=== PATIENT | male | born 1980 | race Caucasian/White ===

== ENCOUNTER 2017-02-17 19:28 | Emergency (ER) | payer SELFPAY ==
[~2017-02-17] VITALS: Ht 177.8 cm; Wt 78.9 kg
[2017-02-17 19:28] VITALS: BP 138/40
[2017-02-17] MEDS ORDERED: UNABLE MC (19:36)
[2017-02-17] MEDS ORDERED: IV NORMAL SALINE 1000ML BAG 1,000 ML IV ONE (20:00)
[2017-02-17] MEDS ORDERED: NALOXONE 0.4 MG/ML VIAL. IV ONE (20:00)
--- NOTE | 2017-02-17 20:04 | PHYS DOC ---
Past Medical History Past Medical History: Other Additional Past Medical Histor: "enlarged heart" etoh, heroin abuse Past Surgical History: Cholecystectomy Alcohol Use: Heavy Drug Use: Heroin Adult General Chief Complaint Chief Complaint: ALTERED MENTAL STATUS HPI HPI 36-year-old male with a history of multidrug abuse including chronic IV heroin abuse now brought in by EMS after being found after found unresponsive in a [facility] bathroom. Patient states he has been using heroin. He denies intentional overdose. Patient states she's also been drinking some alcohol today. No suicidal ideation. Patient does report that he has sleep apnea. He denies recent trauma or illness Review of Systems Review of Systems Review of systems Limited by patient's acute intoxication secondary to opioid abuse Constitutional: Denies fever or chills [] Eyes: Denies change in visual acuity, redness, or eye pain [] HENT: Denies nasal congestion or sore throat [] Respiratory: Denies cough or shortness of breath [] Cardiovascular: No additional information not addressed in HPI [] GI: Denies abdominal pain, nausea, vomiting, bloody stools or diarrhea [] : Denies dysuria or hematuria [] Musculoskeletal: Denies back pain or joint pain [] Integument: Denies rash or skin lesions [] Neurologic: Denies headache, focal weakness or sensory changes [] Endocrine: Denies polyuria or polydipsia [] Current Medications Current Medications Current Medications Medications (Trade) Dose Ordered Sig/Son Start Time Stop Time Status Last Admin Dose Admin Naloxone HCl (Narcan) 0.4 mg 1X ONCE 02/17/17 20:00 02/17/17 20:01 DC 02/17/17 19:53 0.4 MG Sodium Chloride 1,000 ml @ 999 mls/hr 1X ONCE 02/17/17 20:00 02/17/17 21:00 02/17/17 19:56 999 MLS/HR Allergies Allergies Allergies Coded Allergies Type Severity Reaction Last Updated Verified No Known Drug Allergies 02/17/17 No Physical Exam Physical Exam Constitutional: Obese male somnolent and falling asleep during conversation. He does make an effort to answer questions however he drifts off for the end of each sentence., well nourished, no acute distress HENT: Normocephalic, atraumatic, bilateral external ears normal, mucous membranes dry, no oral exudates, nose normal. [] Eyes: PERRLA, EOMI, conjunctiva normal, no discharge. Right exotropia baseline per patient Neck: Normal range of motion, no tenderness, supple, no stridor. [] Cardiovascular:Heart rate regular rhythm, no murmur [] Lungs & Thorax: Bilateral breath sounds clear to auscultation [] Abdomen: Bowel sounds normal, soft, no tenderness, no masses, no pulsatile masses. [] Skin: Warm, dry, no erythema, no rash. [] Multiple scabs right upper extremity consistent with lesions from IV drug abuse. Back: No tenderness, no CVA tenderness. [] Extremities: No tenderness, no cyanosis, no clubbing, ROM intact, no edema. [] Neurologic: Arousable and oriented X 2, to self and to situation, patient not oriented to time and he knows he is in a hospital but is not sure which one., normal motor function, normal sensory function, no focal deficits noted. [] Psychologic: Flat affect and depressed mood judgement not normal, Current Patient Data Vital Signs Vital Signs Date Time Temp Pulse Resp B/P (MAP) Pulse Ox O2 Delivery O2 Flow Rate FiO2 02/17/17 19:28 98.7 103 14 138/40 (72) 88 Room Air 98.7 Lab Values Laboratory Tests Test 02/17/17 19:53 02/17/17 20:00 02/17/17 20:08 Glucose (Fingerstick) 114 mg/dL (70-99) H White Blood Count 6.9 x10^3/uL (4.0-11.0) Red Blood Count 4.78 x10^6/uL (4.30-5.70) Hemoglobin 14.3 g/dL (13.0-17.5) Hematocrit 42.3 % (39.0-53.0) Mean Corpuscular Volume 88 fL (79-100) Mean Corpuscular Hemoglobin 30 pg (25-35) Mean Corpuscular Hemoglobin Concent 34 g/dL (31-37) Red Cell Distribution Width 13.8 % (11.5-14.5) Platelet Count 166 x10^3/uL (140-400) Neutrophils (%) (Auto) 66 % (31-73) Lymphocytes (%) (Auto) 26 % (24-48) Monocytes (%) (Auto) 7 % (0-9) Eosinophils (%) (Auto) 1 % (0-3) Basophils (%) (Auto) 1 % (0-3) Neutrophils # (Auto) 4.5 x10^3uL (1.8-7.7) Lymphocytes # (Auto) 1.8 x10^3/uL (1.0-4.8) Monocytes # (Auto) 0.5 x10^3/uL (0.0-1.1) Eosinophils # (Auto) 0.1 x10^3/uL (0.0-0.7) Basophils # (Auto) 0.0 x10^3/uL (0.0-0.2) Sodium Level 141 mmol/L (136-145) Potassium Level 4.1 mmol/L (3.5-5.1) Chloride Level 104 mmol/L (98-107) Carbon Dioxide Level 28 mmol/L (21-32) Anion Gap 9 (6-14) Blood Urea Nitrogen 16 mg/dL (8-26) Creatinine 0.9 mg/dL (0.7-1.3) Estimated GFR (Cockcroft-Gault) 95.0 BUN/Creatinine Ratio 18 (6-20) Glucose Level 111 mg/dL (70-99) H Calcium Level 9.0 mg/dL (8.5-10.1) Total Bilirubin Pending Aspartate Amino Transferase (AST) Pending Alanine Aminotransferase (ALT) Pending Alkaline Phosphatase Pending Total Protein Pending Albumin Pending Albumin/Globulin Ratio Pending Salicylates Level < 2.8 mg/dL (2.8-20.0) L Salicylate Last Dose Date Salicylate Last Dose Time Acetaminophen Level < 2 mcg/ml (10-30) L Acetaminophen Last Dose Date Acetaminophen Last Dose Time Urine Opiates Screen Pos (NEG) Urine Methadone Screen Neg (NEG) Urine Barbiturates Neg (NEG) Urine Phencyclidine Screen Neg (NEG) Urine Amphetamine/Methamphetamine Pos (NEG) Urine Benzodiazepines Screen Pos (NEG) Urine Cocaine Screen Neg (NEG) Urine Cannabinoids Screen Neg (NEG) Urine Ethyl Alcohol Neg (NEG) Laboratory Tests 02/17/17 20:00 Laboratory Tests 02/17/17 20:00 EKG EKG [] Radiology/Procedures Radiology/Procedures [] Course & Med Decision Making Course & Med Decision Making Pertinent Labs and Imaging studies reviewed. (See chart for details) 36-year-old male with a history of chronic IV drug abuse now brought in by EMS after suspected overdose. Full tox workup pending. Patient very sleepy, repeatedly falling asleep and snoring with episodes of hypoxia which resolved with awakening patient and supplemental oxygen. Patient states he does have obstructive sleep apnea. After administration of Narcan patient completely awake and alert. He is oriented 4. Patient has no clinical intoxication however. He demands to sign out AGAINST MEDICAL ADVICE. Discussed with patient at length with nurses present that opioid affect is likely to out last is Narcan dosing and he is likely to become oversedated again in a potentially life-threatening way. Patient is aware of the risks but insists on signing out AGAINST MEDICAL ADVICE and he is aware that the swollen area on his arm could be an acute abscess. Patient now clarifies that he's had it for at least one week and it is not painful nor has he had fevers. Patient aware of the possibility of infection and the potentially life-threatening nature thereof. All patient's questions were answered and he continues to insist on signing out AGAINST MEDICAL ADVICE. He is encouraged to return any time and to be sure to be in the company of competent adults to address further emergency care if he becomes oversedated again. Patient is also clearly aware of the potentially immediately life- threatening risk of any drug abuse and the potential for or permanent disability from even a single episode of abuse. Dragon Disclaimer Dragon Disclaimer This electronic medical record was generated, in whole or in part, using a voice recognition dictation system. Departure Departure Impression: Primary Impression: Opioid overdose Additional Impressions: Heroin abuse Drug intoxication Left against medical advice Disposition: 07 AGAINST MEDICAL ADVICE Condition: GUARDED Problem Qualifiers CHARISSE FULTON MD Feb 17, 2017 20:04
[2017-02-17 20:09] LABS: BASO % 1 % (0-3); EOS % 1 % (0-3); HEMATOCRIT 42.3 % (39.0-53.0); HEMOGLOBIN 14.3 g/dL (13.0-17.5); LYMPH # 1.8 x10^3/uL (1.0-4.8); LYMPH % 26 % (24-48); MEAN CORPUSCULAR HEMOGLOBIN 30 pg (25-35); MEAN CORPUSCULAR HGB CONC 34 g/dL (31-37); MEAN CORPUSCULAR VOLUME 88 fL (79-100); MONO % 7 % (0-9); NEUT % 66 % (31-73); PLATELET COUNT 166 x10^3/uL (140-400); RED BLOOD COUNT 4.78 x10^6/uL (4.30-5.70); RED CELL DISTRIBUTION WIDTH 13.8 % (11.5-14.5); WHITE BLOOD COUNT 6.9 x10^3/uL (4.0-11.0)
[2017-02-17 20:22] LABS: BARBITURATES NEG (NEG); BENZODIAZEPINES POS (NEG); CANNABINOIDS NEG (NEG); COCAINE NEG (NEG); METHADONE NEG (NEG); OPIATES POS (NEG); PHENCYCLIDINE NEG (NEG)
[2017-02-17 20:28] LABS: CREATININE 0.9 mg/dL (0.7-1.3); POTASSIUM 4.1 mmol/L (3.5-5.1)
[2017-02-17 20:43] LABS: ALBUMIN 3.6 g/dL (3.4-5.0); ALBUMIN/GLOBULIN RATIO 0.9 (1.0-1.7); TOTAL BILIRUBIN 0.1 mg/dL (0.2-1.0); TOTAL PROTEIN 7.4 g/dL (6.4-8.2)
--- NOTE | 2017-02-18 07:23 | EKG ---
[facility] [address] [place] [id number] Test Date: 2017-02-17 Test Time: 19:32:09 Pat Name: GEO YANG Department: Room: Gender: M [employer]: : 1980 Requested By: CHARISSE FULTON Order Number: [id number] Reading MD: Shelbie Thapa Measurements Intervals [place] Rate: 99 P: 0 WY: 108 QRS: 3 QRSD: 78 T: 9 QT: 396 QTc: 514 Interpretive Statements SINUS RHYTHM QRS(T) CONTOUR ABNORMALITY CONSISTENT WITH SEPTAL INFARCT AGE UNDETERMINED ABNORMAL ECG Electronically Signed On 02-20-2017 15:13:27 CDT by Shelbie Thapa
== END 2017-02-17 20:12 | disposition left against medical advice (07) ==
LOC: ER 19:28
DX: T40.2X1A Poisoning by other opioids, accidental (unintentional), initial encounter (principal); F11.10 Opioid abuse, uncomplicated; G47.30 Sleep apnea, unspecified; I51.7 Cardiomegaly; E66.9 Obesity, unspecified; Z68.25 Body mass index [BMI] 25.0-25.9, adult; Y92.89 Other specified places as the place of occurrence of the external cause
CPT/HCPCS: 36415; 80053; 80307; 80329; 82962; 85025; 93005; 96361; 96374; 99285; J2310; J7030; G0479